=== PATIENT | female | born 1990 | race Caucasian/White ===

== ENCOUNTER 2016-05-24 18:32 | Emergency (ER) | payer MEDICAID, OTHER ==
--- NOTE | 2016-05-24 19:05 | UCPHY ---
H & P Time Seen by Provider: 05/24/16 18:59 Patient Type: Established HPI/ROS: This patient has noticed in intraoral lesion in the right lower lip intermittently for 3 months. She is concerned that maybe herpes and came in for evaluation. She reports no significant discomfort or other symptoms. She simply notices it with her tongue and when she looks the mirror & sees a small bump there. She explains that waxes and wanes in size but has always remained small. ROS: No fevers. No fatigue. HEENT: No external lip lesions. No external skin lesions. 5 point ROS is otherwise negative Smoking Status: Never smoked Physical Exam: Physical Exam Vital signs are normal. General: No acute distress HEENT: Oropharynx: There is a small-approximately 2 mm vesicular lesion to the right lower intraoral lip lesion-buccal mucosa with no fluctuance no purulence no erythema no tenderness. No other intraoral lesions are noted. There is also no external lip lesions. No facial rash or lesions. Eyes: Pupils equal and react to light. Extraocular motions are intact. Lungs: No respiratory distress. Cardiac: Brisk capillary refill is intact throughout. Skin: No rash or pallor. Neuro: Alert with no sensorimotor deficits noted. Constitutional: Initial Vital Signs Temperature (C) 36.6 C 05/24/16 18:44 Heart Rate 80 05/24/16 18:44 Respiratory Rate 16 05/24/16 18:44 Blood Pressure 137/87 H 05/24/16 18:44 O2 Sat (%) 96 05/24/16 18:44 O2 Delivery Mode Room Air Allergies/Adverse Reactions: morphine Allergy (Intermediate, Verified 05/24/16 18:46) Rash Home Medications: Medication Instructions Recorded Nature Throid 05/24/16 Zoloft 50mg (*) 05/24/16 MDM/Departure - [facility] ED Course/Re-evaluation: Her physical exam and history appears consistent with a simple small mucosal cyst. I counseled regarding this. Clinically this does not appear consistent with herpes or other infectious process. - Depart Disposition: Home, Routine, Self-Care Clinical Impression: Oral soft tissue cyst Condition: Good Additional Instructions: Diagnosis: Oral soft tissue cyst Plan: This may wax and wane a bit in size and will likely resolve at some point. No intervention is necessary unless becomes very large. If he becomes very large, see an oral surgeon. Referrals: NONE *PRIMARY CARE P,. [Primary Care Provider] - As per Instructions - PQRS PQRS Measurement: NA
[2016-05-24 19:50] VITALS: BP 132/86; PULSE 74; RESP 18; TEMP 98.2; O2SAT 97
== END 2016-05-24 19:25 | disposition home or self-care (01) ==
LOC: CED 18:32
DX: K09.9 Cyst of oral region, unspecified (principal)
CPT/HCPCS: 99213-PO; G0463-PO